=== PATIENT | male | born 1985 | race Caucasian/White ===

== ENCOUNTER 2020-12-15 08:36 | Emergency (ER) | payer OTHER ==
[~2020-12-15] VITALS: Ht 185.4 cm; Wt 104.3 kg
[2020-12-15] MEDS ORDERED: VALIUM2 MG PO (11:04)
[2020-12-15] MEDS ORDERED: PREDNISONE 10 M10 MG PO (11:04)
[2020-12-15 11:06] VITALS: BP 126/73
== END 2020-12-15 11:06 | disposition home or self-care (01) ==
LOC: ER 08:36
DX: M54.42 Lumbago with sciatica, left side (principal); F12.90 Cannabis use, unspecified, uncomplicated; F17.200 Nicotine dependence, unspecified, uncomplicated